=== PATIENT | female | born 1990 | race Caucasian/White ===

== ENCOUNTER 2017-12-18 12:40 | Outpatient (CLI) | payer OTHER ==
[~2017-12-18] VITALS: Ht 167.6 cm; Wt 86.0 kg
[2017-12-18 12:54] VITALS: BP 151/67
[2017-12-18 13:06] VITALS: BP 142/70
[2017-12-18 13:11] VITALS: BP 148/74
[2017-12-18] MEDS ORDERED: PRENATAL TABLE1 EAC3 PO (13:23)
[2017-12-18 13:27] VITALS: BP 132/74
[2017-12-18 13:31] VITALS: BP 128/66
== END 2017-12-18 14:20 | disposition home or self-care (01) ==
LOC: LDRP-OP → 2WEST 12:41 → LDRP-OP 01-16 09:31
DX: O26.893 Other specified pregnancy related conditions, third trimester (principal); Z3A.39 39 weeks gestation of pregnancy
CPT/HCPCS: 59025; G0378

== ENCOUNTER 2017-12-20 12:05 | Inpatient (IN) | payer OTHER ==
[~2017-12-20] VITALS: Ht 167.6 cm; Wt 86.1 kg
[2017-12-20] VITALS (10 sets, daily range): BP systolic 123–135; BP diastolic 66–89
[~2017-12-20 12:05] MED LIST: PRENATAL TABLE1 EAC3 PO
[2017-12-20 13:34] LABS: BASOPHIL (%) 0.3 % (0-1); EOSINOPHIL (%) 0.7 % (0-5); EOSINOPHIL COUNT 0.1 K/uL (0-0.3); HEMATOCRIT 33.4 % (36.0-46.0); HEMOGLOBIN 11.6 G/DL (11.9-15.5); IMMATURE GRANULOCYTE (%) 0.9 % (0.0-0.7); LYMPHOCYTE (%) 17.8 % (15-42); LYMPHOCYTE COUNT 1.6 K/uL (1.0-2.8); MCH 33.4 PG (29.0-34.0); MCHC 34.7 G/DL (30.0-36.0); MCV 96.3 FL (83-99); MONOCYTE (%) 10.4 % (3-12); MONOCYTE COUNT 0.9 K/uL (0-0.8); NEUTROPHIL (%) 69.9 % (45-76); NEUTROPHIL COUNT 6.3 K/uL (1.8-6.4); PLATELET COUNT 238 K/uL (156-360); RBC DIS.WIDTH-CV 13.2 % (11.8-14.6); RBC DIS.WIDTH-SD 46.3 % (39-53); RED BLOOD COUNT 3.47 M/uL (3.80-5.20)
[2017-12-20 14:10] LABS: AMPHETAMINE NEGATIVE (500 ng/mL); BARBITURATES NEGATIVE (200 ng/mL); BENZODIAZEPINES NEGATIVE (150 ng/mL); BUPRENORPHINE NEGATIVE (10 ng/mL); COCAINE NEGATIVE (150 ng/mL); METHADONE NEGATIVE (200 ng/mL); METHAMPHETAMINE NEGATIVE (500 ng/mL); OPIATES (MORPHINE) NEGATIVE (100 ng/mL); OXYCODONE NEGATIVE (100 ng/mL); PHENCYCLIDINE NEGATIVE (25 ng/mL); PROPOXYPHENE NEGATIVE (300 ng/mL); THC CANNABINOIDS NEGATIVE (50 ng/mL); TRICYCLIC ANTIDEPRESSANTS NEGATIVE (300 ng/mL)
[2017-12-21] VITALS (29 sets, daily range): BP systolic 106–146; BP diastolic 60–88
[2017-12-21] MEDS ORDERED: MOTRIN800 MG PO (21:21)
[2017-12-22 00:01] VITALS: BP 128/61
[2017-12-22 06:34] LABS: BASOPHIL (%) 0.3 % (0-1); EOSINOPHIL (%) 0.4 % (0-5); EOSINOPHIL COUNT 0.1 K/uL (0-0.3); HEMATOCRIT 30.4 % (36.0-46.0); HEMOGLOBIN 10.3 G/DL (11.9-15.5); IMMATURE GRANULOCYTE (%) 0.6 % (0.0-0.7); LYMPHOCYTE (%) 9.9 % (15-42); LYMPHOCYTE COUNT 1.5 K/uL (1.0-2.8); MCHC 33.9 G/DL (30.0-36.0); MCV 97.4 FL (83-99); MONOCYTE (%) 7.8 % (3-12); MONOCYTE COUNT 1.2 K/uL (0-0.8); PLATELET COUNT 214 K/uL (156-360); RBC DIS.WIDTH-CV 13.4 % (11.8-14.6); RBC DIS.WIDTH-SD 47.4 % (39-53); RED BLOOD COUNT 3.12 M/uL (3.80-5.20); WHITE BLOOD COUNT 14.8 K/uL (4.1-10.2)
[2017-12-22 07:32] VITALS: BP 142/62
[2017-12-22 15:01] VITALS: BP 117/66
[2017-12-22 22:57] VITALS: BP 123/82
== END 2017-12-23 18:30 | disposition home or self-care (01) | DRG 775 ==
LOC: LDRP-OP 12:05 → 2WEST 12:06 → LDRP-OP 01-16 14:35
PROVIDERS: Advanced Practice Midwife; Nurse Practitioner
DX: O48.0 Post-term pregnancy (principal); O41.03X1 Oligohydramnios, third trimester, fetus 1; O99.324 Drug use complicating childbirth; O22.43 Hemorrhoids in pregnancy, third trimester; Z37.0 Single live birth; Z3A.40 40 weeks gestation of pregnancy; O99.824 Streptococcus B carrier state complicating childbirth; R01.1 Cardiac murmur, unspecified; O70.0 First degree perineal laceration during delivery; F12.10 Cannabis abuse, uncomplicated
CPT/HCPCS: 59025; 85025; C1755; G0378; J0595; J2405; J2540; J3010; J7120